=== PATIENT | male | born 1970 | race African-American/Black ===

== ENCOUNTER 2016-09-04 12:39 | Emergency (ER) | payer OTHER ==
[~2016-09-04] VITALS: Wt 95.3 kg
[~2016-09-04 12:39] MED LIST: AMITRIPTYLINE H25 MG PO; AMOXICILLI400 MG/51 PO; BLOOD PRESSURE MED; CLARITIN10 MG PO; HYDROCODONE BIT1 T11 PO; KEFLEX500 MG PO; LISINOP/HCTZ TAB 20-; LISINOPRIL AND1 TA2 PO; LISINOPRIL-HYDR1 TA1 PO; LISINOPRIL5 MG PO; METOPROL TAR; METOPROLOL TART50 M1 PO; MOTRIN800 MG PO; Motrin,Rufen800 MG PO; NORCO 10-325 T1 EACH PO; PEN-VK500 MG PO; ZITHROMAX Z PA250 MG PO
[2016-09-04] MEDS ORDERED: NOVAPLUS V0.09 MG/Ac INH (12:52)
[2016-09-04] MEDS ORDERED: MIXED AMPHETAMI10 M1 PO (12:52)
[2016-09-04] MEDS ORDERED: AMITRIPTYLINE25 MG PO (12:53)
[2016-09-04] MEDS ORDERED: TESSALON PERLE100 MG PO (14:38)
[2016-09-04] MEDS ORDERED: ROBITUSSIN AC 110 ML PO (14:38)
== END 2016-09-04 14:56 | disposition home or self-care (01) ==
LOC: ED 12:39
DX: J06.9 Acute upper respiratory infection, unspecified (principal); Z79.899 Other long term (current) drug therapy

== ENCOUNTER 2017-10-10 23:36 | Emergency (ER) | payer OTHER ==
[~2017-10-10] VITALS: Ht 182.8 cm; Wt 95.3 kg
[~2017-10-10 23:36] MED LIST changes: +AMITRIPTYLINE25 MG PO; +MIXED AMPHETAMI10 M1 PO; +NOVAPLUS V0.09 MG/Ac INH; +ROBITUSSIN AC 110 ML PO; +TESSALON PERLE100 MG PO
[2017-10-10] MEDS ORDERED: GLUCOPHAGE500 M1 PO (23:40)
[2017-10-11] MEDS ORDERED: Motrin,Rufen800 MG PO (00:02)
[2017-10-11] MEDS ORDERED: NORCO 5-325 TA1 EACH PO (00:05)
[2017-10-28] MEDS ORDERED: PROAIR HFA8.5 GM INH (02:29)
[2017-10-28] MEDS ORDERED: SYMB160 INH (02:32)
== END 2017-10-11 00:31 | disposition home or self-care (01) ==
LOC: ED 23:36
DX: S76.312A Strain of muscle, fascia and tendon of the posterior muscle group at thigh level, left thigh, initial encounter (principal); Z98.890 Other specified postprocedural states; Z79.899 Other long term (current) drug therapy; X50.1XXA Overexertion from prolonged static or awkward postures, initial encounter; Y93.89 Activity, other specified; Y92.89 Other specified places as the place of occurrence of the external cause; Y99.9 Unspecified external cause status

== ENCOUNTER → 2020-02-27 | Outpatient (CLI) | payer OTHER ==
[~2020-02-27] MED LIST changes: +GLUCOPHAGE500 M1 PO; +NAPROSYN500 MG PO; +NORCO 5-325 TA1 EACH PO; +PROAIR HFA8.5 GM INH; +SYMB160 INH
== END ==
LOC: COVID19 16:03
PROVIDERS: ATTEND Internal Medicine
DX: Z20.828 Contact with and (suspected) exposure to other viral communicable diseases (principal)

== ENCOUNTER 2021-03-27 16:30 | Emergency (ER) | payer OTHER ==
[~2021-03-27] VITALS: Ht 182.9 cm; Wt 91.6 kg
[2021-03-27 18:20] LABS: BASO % 0.5 % (0.0-1.0); EOS # 0.1 10*3/uL (0.0-0.4); EOS % 1.5 % (1.0-4.0); HEMATOCRIT 42.4 % (42.0-52.0); LYMPH # 1.7 10*3/uL (1.3-4.4); LYMPH % 18.9 % (27.0-41.0); MEAN CELL VOLUME 83.6 fl (80.0-94.0); MEAN CORPUSCULAR HGB 26.8 pg (27.0-31.0); MEAN CORPUSCULAR HGB CONC 32.1 g/dl (33.0-37.0); MEAN PLATELET VOLUME 9.1 fl (9.6-12.3); MONO # 0.7 10*3/uL (0.1-1.0); MONO % 7.5 % (3.0-9.0); NEUT # 6.3 10*3/uL (2.3-7.9); NEUT % 71.3 % (47.0-73.0); PLATELET COUNT AUTOMATED 312 10*3/uL (130-400); RED BLOOD COUNT 5.07 10*6/uL (4.50-5.90); RED CELL DISTRI WIDTH 13.1 % (0-14.5); WHITE BLOOD COUNT 8.8 10*3/uL (4.8-10.8)
[2021-03-27 18:36] LABS: ALBUMIN 4.5 gm/dl (3.1-4.5); CREATININE 2.07 mg/dL (0.70-1.30); POTASSIUM 3.9 mmol/L (3.5-5.1); TOTAL PROTEIN 8.5 gm/dL (6.4-8.2)
[2021-03-27 19:10] LABS: BILIRUBIN Negative (Negative); BLOOD Negative (Negative); CLARITY Clear (Clear); COLOR Dark Yellow (Yellow); GLUCOSE Negative (Negative); KETONE Trace (Negative); LEUKO ESTERASE Negative (Negative); NITRITE Negative (Negative); SPECIFIC GRAVITY 1.025 (1.001-1.030)
[2021-03-27 19:17] LABS: RBC 0-2 rbc/hpf (0-2)
[2021-03-27 19:18] LABS: BACTERIA TRACE; EPITHELIAL CELLS 0-2; HYALINE CAST TNTC; MUCOUS TRACE
== END 2021-03-27 21:59 | disposition home or self-care (01) ==
LOC: ED 16:30
PROVIDERS: Family Medicine
DX: N17.9 Acute kidney failure, unspecified (principal); R10.9 Unspecified abdominal pain; Z88.0 Allergy status to penicillin; Z79.899 Other long term (current) drug therapy; Z98.890 Other specified postprocedural states; Z90.89 Acquired absence of other organs

== ENCOUNTER → 2022-01-08 | Outpatient (CLI) | payer OTHER | END | disposition home or self-care (01) | LOC: ORTHO 01:11 | PROVIDERS: ATTEND Orthopaedic Surgery | DX: M25.511 Pain in right shoulder (principal) ==

== ENCOUNTER → 2022-08-13 | Outpatient (CLI) | payer OTHER ==
[~2022-08-13] MED LIST changes: +ASPIRIN ADULT L81 M2 PO; +ATORVASTATIN CA40 M1 PO; +CITALOPRAM20 MG PO; +FARXIGA10 M1 PO; +LOPRESSOR25 MG PO; +METFORMIN HYDR500 MG PO; +METOPROLOL SUCC50 M1 PO; +MIXED AMPHETAMI15 MG PO; +QUETIAPINE FUM400 M1 PO; +VIBRAMYCIN HYC100 MG PO
[2022-08-13 14:57] LABS: BUN 12 mg/dl (9-23); CHLORIDE 102 mmol/L (98-107); POTASSIUM 3.8 mmol/L (3.4-5.1)
== END | disposition home or self-care (01) ==
LOC: LAB 14:18
PROVIDERS: ATTEND Internal Medicine Nephrology
DX: U07.1 COVID-19 (principal)

== ENCOUNTER 2023-09-12 15:21 | Emergency (ER) | payer OTHER ==
[~2023-09-12] VITALS: Ht 182.8 cm; Wt 97.5 kg
[~2023-09-12 15:21] MED LIST changes: +CEFUROXIME AXE500 MG PO; +FUROSEMIDE20 M1 PO; +LOSARTAN POTASS50 M1 PO
[2023-09-12] MEDS ORDERED: DULERA 100 MCG-13 GM INH (15:37)
[2023-09-12] MEDS ORDERED: OMEPRAZOLE40 MG PO (15:37)
[2023-09-12 16:16] LABS: BASO % 0.4 % (0.0-1.0); EOS # 0.2 10*3/uL (0.0-0.4); HEMATOCRIT 39.1 % (42.0-52.0); LYMPH # 1.1 10*3/uL (1.3-4.4); LYMPH % 12.2 % (27.0-41.0); MEAN CELL VOLUME 86.3 fl (80.0-94.0); MEAN CORPUSCULAR HGB 26.5 pg (27.0-31.0); MEAN CORPUSCULAR HGB CONC 30.7 g/dl (33.0-37.0); MEAN PLATELET VOLUME 9.1 fl (9.6-12.3); MONO % 10.7 % (3.0-9.0); NEUT # 6.7 10*3/uL (2.3-7.9); NEUT % 74.4 % (47.0-73.0); PLATELET COUNT AUTOMATED 209 10*3/uL (130-400); RED BLOOD COUNT 4.53 10*6/uL (4.50-5.90); RED CELL DISTRI WIDTH 12.7 % (0-14.5)
[2023-09-12 16:41] LABS: ALKALINE PHOSPHATASE 84 U/L (46-116); BUN 16 mg/dl (9-23); CHLORIDE 101 mmol/L (98-107); POTASSIUM 4.1 mmol/L (3.4-5.1); SGPT/ALT 20 U/L (5-49); TOTAL PROTEIN 7.6 gm/dL (6.0-8.0)
[2023-09-12] MEDS ORDERED: CEPHALEXIN500 M1 PO (17:23)
== END 2023-09-12 17:24 | disposition home or self-care (01) ==
LOC: ED 15:21
PROVIDERS: Physician Assistant Medical
DX: L03.116 Cellulitis of left lower limb (principal); I10 Essential (primary) hypertension; E11.9 Type 2 diabetes mellitus without complications; Z88.0 Allergy status to penicillin; Z90.89 Acquired absence of other organs; Z98.890 Other specified postprocedural states

== ENCOUNTER → 2023-09-23 | Outpatient (CLI) | payer OTHER ==
[~2023-09-23] MED LIST changes: +CEPHALEXIN500 M1 PO; +DULERA 100 MCG-13 GM INH; +OMEPRAZOLE40 MG PO
== END | disposition home or self-care (01) ==
LOC: RAD 13:44
PROVIDERS: ATTEND Internal Medicine
DX: M25.462 Effusion, left knee (principal); M25.562 Pain in left knee

== ENCOUNTER → 2023-10-06 | Outpatient (CLI) | payer OTHER | END | disposition home or self-care (01) | LOC: WOUNDCARE 01:17 | PROVIDERS: ATTEND Nurse Practitioner Family | DX: L02.416 Cutaneous abscess of left lower limb (principal); L53.9 Erythematous condition, unspecified; I10 Essential (primary) hypertension; E11.9 Type 2 diabetes mellitus without complications; J45.909 Unspecified asthma, uncomplicated; Z79.82 Long term (current) use of aspirin; Z79.84 Long term (current) use of oral hypoglycemic drugs; Z79.899 Other long term (current) drug therapy ==

== ENCOUNTER → 2024-11-01 | Outpatient (CLI) | payer OTHER ==
[2024-11-01 13:46] LABS: BASO # 0.1 10*3/uL (0.0-0.1); BASO % 0.9 % (0.0-1.0); EOS # 0.3 10*3/uL (0.0-0.4); EOS % 5.0 % (1.0-4.0); MEAN CELL VOLUME 87.4 fl (80.0-94.0); MEAN CORPUSCULAR HGB 27.0 pg (27.0-31.0); MEAN PLATELET VOLUME 9.1 fl (9.6-12.3); MONO # 0.6 10*3/uL (0.1-1.0); MONO % 9.9 % (3.0-9.0); NEUT # 3.2 10*3/uL (2.3-7.9); NEUT % 57.8 % (47.0-73.0); NUCLEATED RED BLOOD CELL 0.0 % (0.0-0.0); NUCLEATED RED BLOOD CELL 0.0 10*3/uL (0.0-0.0); PLATELET COUNT AUTOMATED 288 10*3/uL (130-400); RED CELL DISTRI WIDTH 12.9 % (0-14.5)
[2024-11-01 13:47] LABS: BILIRUBIN Negative (Negative); BLOOD Negative (Negative); CLARITY Clear (Clear); COLOR Yellow (Yellow); KETONE Trace (Negative); LEUKO ESTERASE Negative (Negative); NITRITE Negative (Negative); PH 6.0 (4.5-8.0); SPECIFIC GRAVITY >= 1.030 (1.001-1.030); UROBILINOGEN 1.0 E.U./dl (0.0-1.0)
[2024-11-01 13:56] LABS: BACTERIA TRACE; EPITHELIAL CELLS 0-2; MUCOUS TRACE
[2024-11-01 14:28] LABS: BUN 19 mg/dl (9-23); LDL CHOLESTEROL 44 mg/dL (9-159); SGPT/ALT 14 U/L (5-49)
[2024-11-01 14:29] LABS: VITAMIN D, 25-HYDROXY 78.0 ng/mL (30-100)
== END | disposition home or self-care (01) ==
LOC: LAB 13:19
PROVIDERS: ATTEND Internal Medicine Nephrology
DX: N18.31 Chronic kidney disease, stage 3a (principal); E83.9 Disorder of mineral metabolism, unspecified; E78.5 Hyperlipidemia, unspecified